=== PATIENT | male | born 1950 | race African-American/Black ===

== ENCOUNTER 2016-10-16 09:46 | Emergency (ER) | payer MEDICARE, OTHER ==
[~2016-10-16] VITALS: Ht 185.4 cm; Wt 104.5 kg
[~2016-10-16 09:46] MED LIST: ALLO300T2 PO; ATOR80TA PO; CETI10CA PO; FINA5TAB9 PO; FLUT9.9S NS; GABA600T2 PO; HYG25 PO; INSU100I SQ; INSU100I13 SUBQ; LOSA100T29 PO; NIFE90TA31 PO; OLAN5TAB PO; OLP.1OP5 AFFECT_EYE; ONDA8TAB7 PO; PANT40TA2 PO; SILD50TA PO; TOP100 PO; TRAM-14 PO
[2016-10-16 09:50] VITALS: BP 121/69; PULSE 82; RESP 18; O2SAT 97
--- NOTE | 2016-10-16 10:08 | ED.REPORT ---
HPI-Abd Pain M 40 and Over Date of Service Oct 16, 2016 ED Provider: Leandro Hartmann MD The patient is a 66 year old male with history of diabetes mellitus, diabetic gastroparesis, hypertension, and hyperlipidemia, who presents to the emergency department complaining of vomiting that began 2 days ago. He has also noticed "burning" in his chest, "acid" in his mouth, nausea. He has been unable to tolerate PO since onset. He normally takes Protonix. His symptoms are similar to previous episodes of gastroparesis. He denies abdominal pain, black/tarry stools, melena, hematochezia, dysuria, fever, chills, cough, shortness of breath , or chest pain. Nursing Notes Stated Complaint: VOMITING,DIABETIC Chief Complaint: Male Abdominal Pain Nursing Notes Reviewed: Yes Allergies: Coded Allergies: NSAIDS (Non-Steroidal Anti-Inflamma (Verified Allergy, Severe, HIVES, ) aspirin (Verified Allergy, Severe, ANAPHYLAXIS, 06/27/15) brompheniramine (Verified Allergy, Severe, ORAL CAVITY EDEMA, 06/27/15) egg (Verified Allergy, Severe, ANAPHYLAXIS (ALSO POULTRY), 06/27/15) hydrocodone (Verified Allergy, Severe, Anaphylaxis, 06/18/15) meperidine (Verified Allergy, Severe, Anaphylaxis, 06/18/15) promethazine (Verified Allergy, Severe, TREMULOUS, 06/25/15) sodium metabisulfite (Verified Allergy, Severe, 06/18/15) varicella-zoster immune globulin (h (Verified Allergy, Severe, 06/18/15) codeine (Verified Allergy, Unknown, UNKNOWN, 06/25/15) hydroxyzine HCl (Verified Allergy, Unknown, HIVES, 06/18/15) propoxyphene napsylate (Verified Allergy, Unknown, HIVES, 06/18/15) metformin (Verified Adverse Reaction, Severe, DIARRHEA, 06/25/15) metoclopramide (Verified Adverse Reaction, Unknown, Extrapyramidal Symptoms, 10/16/16) Uncoded Allergies: NAPSYLATE BROMPHENIRAMINE MALEATE (Allergy, Unknown, HIVES, 08/20/14) TUBERCULIN, PPD (Allergy, Unknown, UNKNOWN, 06/16/15) Scheduled Allopurinol (Allopurinol) 300 Mg Tablet 300 MG PO DAILY Atorvastatin (Lipitor) 80 Mg Tablet 80 MG PO DAILY Cetirizine HCl (Zyrtec) 10 Mg Capsule 10 MG PO HS Chlorthalidone (Chlorthalidone) 25 Mg Tablet 25 MG PO DAILY Finasteride (Finasteride) 5 Mg Tablet 5 MG PO DAILY Fluticasone Propionate (Flonase Allergy Relief) 50 Mcg/Actuation [place].susp 9.9 ML NS DAILY Gabapentin (Gabapentin) 600 Mg Tablet 600 MG PO TID Insulin Aspart (NovoLOG U-100 Pen) 100 Unit/Ml Insuln.pen 20-30 UNITS SQ AC SLIDING SCALE Insulin Glargine (Lantus U100 Solostar Insulin Pen) 100 Unit/1 Ml Insuln.pen 75 UNIT SUBQ HS Losartan Potassium (Losartan Potassium) 100 Mg Tablet 100 MG PO DAILY Metoprolol Succinate ER (Toprol XL) 100 Mg Tablet 100 MG PO DAILY Nifedipine ER (Nifedipine ER) 90 Mg Tab.er.24 90 MG PO DAILY Olanzapine (Olanzapine) 5 Mg Tablet 5 MG PO DAILY Olopatadine (Patanol) 5 Ml Soln 5 ML AFFECT_EYE PRN Pantoprazole DR (Protonix) 40 Mg Tablet 40 MG PO DAILY Scheduled PRN Ondansetron ODT (Zofran ODT) 8 Mg Tablet 8 MG PO TID PRN PRN For Nausea Ondansetron ODT (Zofran ODT) 4 Mg Tablet 4 MG PO Q4H PRN PRN For Nausea Sildenafil Citrate (Viagra) 50 Mg Tablet 50 MG PO UD PRN PRN ED Tramadol (Ultram) 50 Mg Tablet 50 MG PO Q6H PRN PRN Pain General Time Seen by MD: 10:01 Chief Complaint Other (vomiting) Hx Obtained From: Patient Arrived By: Walk-in Sudden in Onset?: Yes Onset Occurred: Yesterday Symptom Duration: Intermittent Progression since Onset: Intermittent, Gradually worsening Location: : Diffuse Quality: Burning, Pleuritic Severity: Current: Moderate Severity: Maximum: Severe Recent Healthcare: No recent hospitalization Similar Sx Previous: Yes Past Medical History Patient History: Patient reports no known family medical history. Past Medical History PTSD Arthritis Diabetic gastroparesis Reports: Diabetes mellitus, Hyperlipidemia, Hypertension Past Surgical History Right shoulder surgery Family History Noncontributoru Smoking History Never Smoker Social History Alcohol Use: Denies alcohol use Drug Use: Denies drug use Other Social History: Good social support, , Local resident Ambulatory Status Independent Review of Systems Constitutional: Denies: Chills, Fever Respiratory: Denies: Non-productive cough, Shortness of breath Cardiovascular: Denies: Chest pain GI: Reports: Anorexia, Nausea, Vomiting, Denies: Abdominal pain, Bloody/tarry stool, Hematochezia, Melena Male: Denies Dysuria Complete sys rev & neg: except as marked. Physical Exam Initial Vital Signs Vital Signs (First) Date Time Temp Pulse Resp B/P Pulse Ox O2 Delivery O2 Flow Rate FiO2 10/16/16 09:50 36.2 82 18 121/69 97 10/16/16 11:56 Room Air Initial VS: Reviewed Head / Eyes: Atraumatic, Normocephalic, PERRL ENT: Mucous membranes moist, Conjunctiva normal, No scleral icterus Neck: Supple, Non-tender, Full range of motion Lymphatic: No lymphadenopathy Extremities: Vascular intact, Neuro intact, No swelling, No tenderness Skin: Warm, Dry, No cyanosis Neurologic: Alert, Oriented, Nonfocal Psychiatric: Mood/affect normal, Behavior normal, Normal thought content General/Constitutional: Awake, Alert Respiratory / Chest: Atraumatic, Breath sounds NL, Breath sounds = bilat, No respiratory distress, No rales, No rhonchi, No wheezing Cardiovascular: Heart rate NL, Regular rhythm, Heart sounds NL, No murmurs, No rubs, Peripheral circulation NL Abdomen: Atraumatic, Soft, Non-tender, McBurney's non-tender, No guarding, No rebound, BS normoactive, No distention, No hernia, No palpable mass, No pulsatile mass Back: Inspection NL, Full range of motion, Painless range of motion Interpretation & Diagnostics Lab Results Interpretation Result Diagram: 10/16/16 1030 10/16/16 1030 Test 10/16/16 10:30 White Blood Count 7.1th/mm3 (3.8-10.1) Red Blood Count 4.51mil/mm3 (4.40-5.80) Hemoglobin 14.2g/dL (13.8-17.2) Hematocrit 41.0% (41.0-50.0) Mean Corpuscular Volume 90.9fL (81-100) Mean Corpuscular Hemoglobin 31.5pg (27.0-35.0) Mean Corpuscular Hemoglobin Concent 34.6% (32.0-37.0) Red Cell Distribution Width 12.2% (12.3-15.4) Platelet Count 184bil/L (150-400) Neutrophils (%) (Auto) 74.9% (40-74) Lymphocytes (%) (Auto) 16.7% (14-46) Monocytes (%) (Auto) 8.0% (4-12) Eosinophils (%) (Auto) 0.3% (0-5) Basophils (%) (Auto) 0% (0-3) Sodium Level 138mEq/L (134-144) Potassium Level 4.2mEq/L (3.5-5.2) Chloride Level 100mEq/L (97-108) Carbon Dioxide Level 23mmol/L (18-29) Blood Urea Nitrogen 12mg/dL (8-27) Creatinine 1.13mg/dL (0.76-1.27) Estimat Glomerular Filtration Rate 69mL/min (>59) Glucose Level 99mg/dL (60-99) Calcium Level 9.6mg/dL (8.5-10.1) Magnesium Level 2.0mg/dL (1.6-2.6) Total Bilirubin 0.7mg/dL (0.0-1.2) Aspartate Amino Transf (AST/SGOT) 21U/L (0-50) Alanine Aminotransferase (ALT/SGPT) 16U/L (0-44) Alkaline Phosphatase 67U/L (25-160) Total Protein 7.3g/dL (6.4-8.4) Albumin 4.2g/dL (3.4-5.0) Lipase 21U/L (13-60) Hold Paez Top Tube Received (Received) Re-Eval/Medical Decision Med Decision/Clinical Course 66-year-old male history of diabetic gastroparesis presenting complaining of acid reflux and nausea. Denies any fevers or abdominal pain. Vital signs stable. Labs are stable. Patient was given Zofran with improvement in nausea. He was then given Reglan which made him feel very anxious. He was given a very small dose of Ativan which made him feel much better. He had no vomiting. He was given a GI cocktail and his heartburn resolved. His nausea resolved. Patient felt much better and requested to go home and discharged home with return precautions. Source of Hx: Old records Time of Eval: 10:00 Re-Evaluation/Progress Note: The patient is still complaining of pain and nausea. Time of Eval: 11:23 Re-Evaluation/Progress Note: The patient is feeling anxious and agitated after the Reglan. Time of Eval: 11:48 Re-Evaluation/Progress Note: The patient feels much better and would like to go home. Counseled Regarding: Diagnosis, Lab results, Need for follow-up, When/why to return to ED Discharge & Departure Primary Impression: Diabetic gastroparesis Additional Impression: Gastritis Gastritis type: unspecified gastritis Chronicity: unspecified Gastritis bleeding: without bleeding Qualified Code: K29.70 - Gastritis, unspecified, without bleeding Disposition: Home Vital Signs - All Vital Signs Date Time Temp Pulse Resp B/P Pulse Ox O2 Delivery O2 Flow Rate FiO2 10/16/16 12:09 36.4 70 16 117/61 98 Room Air 10/16/16 11:56 36.4 70 16 117/61 98 Room Air 10/16/16 09:50 36.2 82 18 121/69 97 )( All Prior VS Reviewed: Yes Condition: Stable Patient Instructions: Diabetic gastroparesis (DC) Additional Instructions: Thank you for entrusting us with your care today. Take the Protonic as previously prescribed and use the Zofran as needed for nausea and vomiting. Followup with your primary doctor and bar supervisor. Please return to the emergency department if you are unable to keep fluids down, or if you develop vomiting, fever, abdominal pain, or any other new or concerning symptoms. Referrals: ROE JAQUEZ (PCP) Candice Attestation Portions of this note were transcribed by Mary Salgado. I, Dr. Hartmann personally performed the history, physical exam and medical decision-making; I reviewed and confirmed the accuracy of the information in the transcribed note. Signed by: Candice Serrano, 10/16/2016 at 1200. copies to: ROE JAQUEZ Ben M MD Oct 16, 2016 10:08 Mary Salgado Oct 16, 2016 10:14
[2016-10-16] MEDS ORDERED: 0.9% Sodium Chloride 1,000 ML IV ONE (10:15)
[2016-10-16 10:38] LABS: BASOPHILS % (AUTO) 0 % (0-3); EOSINOPHILS % (AUTO) 0.3 % (0-5); Mean Corpuscular Hemoglobin 31.5 pg (27.0-35.0); Mean Corpuscular Volume 90.9 fL (81-100); NEUTROPHILS % (AUTO) 74.9 % (40-74); Platelet Count 184 bil/L (150-400)
[2016-10-16] MEDS ORDERED: MetoCLOpramide 5 mg/mL 2 mL Inj IVPUSH ONE (10:45)
[2016-10-16] MEDS ORDERED: LidocaineVisc 2%:Antacid 1:1 10 mL Syringe PO ONE (10:45)
[2016-10-16] MEDS ORDERED: ONDA4TAB9 PO (11:50)
[2016-10-16 11:56] VITALS: BP 117/61; PULSE 70; RESP 16; O2SAT 98
[2016-10-16 12:09] VITALS: BP 117/61; PULSE 70; RESP 16; O2SAT 98
== END 2016-10-16 12:10 | disposition home or self-care (01) ==
LOC: SED 10:09
DX: E11.43 Type 2 diabetes mellitus with diabetic autonomic (poly)neuropathy (principal); K31.84 Gastroparesis; K29.70 Gastritis, unspecified, without bleeding; I10 Essential (primary) hypertension; E78.5 Hyperlipidemia, unspecified; Z88.6 Allergy status to analgesic agent; Z88.5 Allergy status to narcotic agent; Z88.8 Allergy status to other drugs, medicaments and biological substances; Z79.4 Long term (current) use of insulin
CPT/HCPCS: 80053; 82948; 83690; 83735; 85025; 96361; 96374; 96375; 99284; J2060; J2765; J7030

== ENCOUNTER 2017-01-02 08:32 | Day surgery (SDC) | payer MEDICARE, OTHER ==
--- NOTE | 2017-01-01 12:52 | PCM.HPANE ---
Patient Data Surgeon Admitting Provider: Attending Provider:Tristan Gruber MD Primary Care Physician:Edis Crowder Other Provider:Darryl Cornelius Anesthesia Reason for Visit Adenomatous Polyp Of Colon, Gerd Ht/WT & BMI Body Mass Index Allergies Coded Allergies: NSAIDS (Non-Steroidal Anti-Inflamma (Verified Allergy, Severe, HIVES, ) aspirin (Verified Allergy, Severe, ANAPHYLAXIS, 06/27/15) brompheniramine (Verified Allergy, Severe, ORAL CAVITY EDEMA, 06/27/15) diphenhydramine (Verified Allergy, Severe, Nausea,Vomiting, 01/02/17) egg (Verified Allergy, Severe, ANAPHYLAXIS (ALSO POULTRY), 06/27/15) hydrocodone (Verified Allergy, Severe, Anaphylaxis, 06/18/15) meperidine (Verified Allergy, Severe, Anaphylaxis, 06/18/15) promethazine (Verified Allergy, Severe, TREMULOUS, 06/25/15) sodium metabisulfite (Verified Allergy, Severe, 06/18/15) varicella-zoster immune globulin (h (Verified Allergy, Severe, 06/18/15) codeine (Verified Allergy, Unknown, UNKNOWN, 06/25/15) hydroxyzine HCl (Verified Allergy, Unknown, HIVES, 06/18/15) propoxyphene napsylate (Verified Allergy, Unknown, HIVES, 06/18/15) metformin (Verified Adverse Reaction, Severe, DIARRHEA, 06/25/15) metoclopramide (Verified Adverse Reaction, Unknown, Extrapyramidal Symptoms, 10/16/16) Uncoded Allergies: NAPSYLATE BROMPHENIRAMINE MALEATE (Allergy, Unknown, HIVES, 08/20/14) TUBERCULIN, PPD (Allergy, Unknown, UNKNOWN, 06/16/15) Past Anesthesia History Anesthesia History: Positive for:: Abnormal Airway, Difficult Intubation, Denies:: Anesthesia Reactions, Fam Anesthesia Reaction, Fam Malignant Hypertherm, Malignant Hyperthermia Additional Information: Hx of diffucult intubation with a reported LONG epiglottis via Mac 4 DL. Reported to have a good view of Vocal Cords with Glidescope #4. This was for a shoulder surgery here at [facility]. Chart is in EMR. Diabetes History Hx Diabetes?: Yes Type of Diabetes: Type I Glycemic Control: Insulin Dependent MRSA MRSA: No Medications Reported Medications Alprazolam (Xanax)0.25 Mg Tablet0.25 Mg PO TID PRN For Anxiety Ref 0 01/01/17 Tramadol 50 Mg Obujdq03 Mg PO TID PRN For Pain Ref 0 01/01/17 Insulin Glargine,Hum.rec.anlog (Toujeo Solostar)300 Unit/Ml (1.5 Ml) Insuln.pen80 Unit SQ BID 01/01/17 Sucralfate 1 Gm Tablet1 Gm PO QID 30 Days Ref 0 01/01/17 Sildenafil Citrate (Sildenafil)20 Mg Wneuln26 Mg PO 01/01/[address] 40 Mg Tablet.dr40 Mg PO BID Ref 0 01/01/17 Insulin Aspart (NovoLOG U100 Insulin Vial)100 U/Ml U15 Unit SUBQ HS #1 VIAL Ref 0 01/01/17 Insulin Aspart (NovoLOG U100 Insulin Vial)100 U/Ml U10 Unit SUBQ BID #1 VIAL Ref 0 01/01/17 Metoprolol Tartrate 25 Mg Duefna47 Mg PO BID 30 Days Ref 0 01/01/17 Lisinopril 40 Mg Bncbzz44 Mg PO DAILY 30 Days Ref 0 01/01/17 Carboxymethylcellulose Sodium (Lubricant Eye Drops)15 Ml Drops15 Ml OCULAR 01/01/17 Gabapentin 300 Mg Swkgeby772 Mg PO DAILY Ref 0 01/01/17 Dexlansoprazole ER (Dexilant)60 Mg Bttpitg11 Mg PO DAILY 30 Days Ref 0 01/01/17 Ammonium Lactate 1 Ml Solution1 Ml MC 01/01/17 Atorvastatin (Lipitor)80 Mg Ikwrpd92 Mg PO DAILY Ref 0 06/16/15 Discontinued Reported Medications Sildenafil Citrate (Viagra)50 Mg Ghifoe76 Mg PO UD PRN ED Ref 0 06/16/15 Olopatadine (Patanol)5 Ml Soln5 Ml AFFECT_EYE PRN 06/16/15 Olanzapine 5 Mg Tablet5 Mg PO DAILY Ref 0 06/16/15 Finasteride 5 Mg Tablet5 Mg PO DAILY 30 Days Ref 0 06/16/15 Gabapentin 600 Mg Papvdl008 Mg PO TID Ref 0 06/16/15 Allopurinol 300 Mg Thegav436 Mg PO DAILY Ref 0 06/16/[address] (Protonix)40 Mg Nmvrbs20 Mg PO DAILY Ref 0 06/16/15 Fluticasone Propionate (Flonase Allergy Relief)50 Mcg/Actuation [place].susp9.9 Ml NS DAILY 06/16/15 Cetirizine HCl (Zyrtec)10 Mg Jrjowiw60 Mg PO HS #30 CAPSULE Ref 0 06/16/15 Insulin Glargine (Lantus U100 Solostar Insulin Pen)100 Unit/1 Ml Insuln.pen75 Unit SUBQ HS #1 PENINJ Ref 0 06/16/15 Insulin Aspart (NovoLOG U-100 Pen)100 Unit/Ml Insuln.tqz58-54 Units SQ AC SLIDING SCALE 06/16/15 Metoprolol Succinate ER (Toprol XL)100 Mg Mivzti143 Mg PO DAILY Ref 0 06/16/15 Nifedipine ER 90 Mg Tab.er.2490 Mg PO DAILY Ref 0 06/16/15 Chlorthalidone 25 Mg Lkemxr77 Mg PO DAILY #30 TABLET 06/16/15 Losartan Potassium 100 Mg Qtmnew356 Mg PO DAILY 06/16/15 Discontinued Scripts Ondansetron ODT (Zofran ODT)4 Mg Tablet4 Mg PO Q4H PRN For Nausea #10 TABLET Prov:Leandro Hartmann MD 10/16/16 Tramadol (Ultram)50 Mg Aiagtv81 Mg PO Q6H PRN Pain #20 TABLET Ref 0 Prov:Alea Pickering DO 06/27/15 Ondansetron ODT (Zofran ODT)8 Mg Tablet8 Mg PO TID PRN For Nausea #14 TABLET Prov:Freedom Singh MD 06/25/15 History History of ENT Problems?: Yes HEENT History: Positive for:: Cataracts (S/P EXTRACTION) Sinus Problem (ALLERGIC RHINITIS) Denies:: Abnormal Airway Difficult Intubation Dysphagia Hearing Problem Denture Type: None Teeth Condition: Within Normal Limits Hx of Heart Problems?: Yes Cardiovascular History: Positive for:: Cardiac Surgery (HEART CATH [facility]2011) Chest Pain Hypertension (HYPERLIPIDEMIA) Denies:: AICD Atrial Fibrillation Pacemaker Valvular Heart Disease Hx of Respiratory Problem?: Yes Respiratory History: Positive for:: Asthma Pneumonia Use of C-PAP Machine (AR+ NOT USING CPAP (TROUBLE W/ EQUIP-NEW MACHINE ORDERED)) Denies:: COPD Cough Hemoptysis Tuberculosis Hx Neurologic Problems?: Yes Neurological History: Positive for:: Headaches (CHRONIC) Denies:: CVA Dementia Hx of GI Problems?: Yes Hx of Problems?: Yes Genitourinary History: Positive for:: Kidney Stones (HX OF) Male Hx: Positive for:: Prostate Problems (??LUTS) Denies:: Scrotal Mass Testicular Surgery Skin History: Positive for:: History Skin Disorders? (DRY SKIN) Denies:: Pressure Ulcers Hx Musculoskeletal Problems?: Yes Musculoskeletal History: Positive for:: Musculoskeletal Trauma (RT SHOULDER SLAP TEAR=CURRENT PROBLEM) Denies:: Back Injury (C/OF SCIATICA) Degenerative Joint Fibromyalgia Joint Replacement Myasthenia Gravis Osteoarthritis Rheumatoid Arthritis Systemic Lupus Hx of Psycho/Social Problems?: Yes Psycho Social History: Positive for:: Hx Depression (PTSD/CLAUSTROPHOBIC) Denies:: Anxiety Bipolar Disorder Suicide Attempt Hx Surgeries?: Yes (CATARACTS, EXC SPINAL MASS,HEART CATH,GLAUCOMA CORRECTION, R shoulder, tabatha) Hx Any Other Health Problems?: Yes Other History: Positive for:: Hospitalization (CARDIAC) Denies:: Cancer Endocrine Disease Thyroid Disease History Blood Transfusions: Denies:: Blood Transfusions Hx Diabetes: Yes Hx Alcohol Use: NoHx Substance Use: No Smoking Status: Never Smoker Have You Smoked inLast 12 mo: No Stop/Bang Risk Assessment Category Category 1A: Patient has history of documented sleep apnea, and HAS NOT received any narcotic, sedative or anesthesia administration during this stay. Category 1B: Patient has history of documented sleep apnea, and HAS received any narcotic , sedative or anesthesia administration during this stay Category 2: Patient has SUSPECTED Obstructive Sleep Apnea, and HAS received any narcotic , sedative or anesthesia administration during this stay. Category 3: Patient has SUSPECTED Obstructive Sleep Apnea and HAS NOT received narcotic, sedative or anesthesia administration during this stay. Category 4: Outpatient in Procedural Areas with known sleep apnea or who screen positive for High Risk via the STOP/BANG questionnaire. Exam Exam General Appearance: Alert, Oriented X3, Cooperative HEENT/AIRWAY: MP 3, Neck Movement (thick, 40% expected RONM), Mouth Opening ( moderate) Lungs: Clear to Auscultation Heart: Exam Unremarkable Plan Impression Patient chart reviewed, patient interviewed and anesthestic plan with risks, benefits, and alternatives discussed, and informed consent obtained. ASA Physical Status: ASA3 Severe Disease Anesthetic Plan: GA Bene/Risks/Altern/Consents: Yes HP Complete Prior to Induction: Yes Srini Mcmanus MD Jan 01, 2017 12:52
[~2017-01-02] VITALS: Ht 185.4 cm; Wt 104.3 kg
[~2017-01-02 08:32] MED LIST changes: -ALLO300T2 PO; +ALPR0.25 PO; +AMMO1SOL2 MC; +CARB15DR78 OCULAR; -CETI10CA PO; +DEXL60CA5 PO; -FINA5TAB9 PO; -FLUT9.9S NS; +GABA-502 PO; -GABA600T2 PO; -HYG25 PO; +INSU100C8 SUBQ; -INSU100I SQ; -INSU100I13 SUBQ; +INSU300I SQ; +LISI40TA PO; -LOSA100T29 PO; +Lactated Ringer's 1,000 ML IV ONE; +METO25TA6 PO; -NIFE90TA31 PO; -OLAN5TAB PO; -OLP.1OP5 AFFECT_EYE; -ONDA8TAB7 PO; -PANT40TA2 PO; +PANT40TA3 PO; +SILD20TA14 PO; -SILD50TA PO; +SUCR1TAB PO; -TOP100 PO; -TRAM-14 PO; +TRAM50TA2 PO
[2017-01-02] MEDS ORDERED: fentaNYL-PF 50 mCg/mL 2 mL Inj ONE (08:33)
[2017-01-02] MEDS ORDERED: Propofol 10,000 mCg/mL 20 mL Inj ONE (08:33)
[2017-01-02 09:03] VITALS: BP 157/81; PULSE 77; O2SAT 100
[2017-01-02] MEDS ORDERED: Ondansetron 2 mg/mL 2 mL Inj IVPUSH PRN (09:35)
[2017-01-02] MEDS ORDERED: Lactated Ringer's 1,000 ML IV SCH (09:35)
[2017-01-02 09:45] VITALS: BP 126/79; PULSE 69; RESP 16; O2SAT 95
[2017-01-02 09:55] VITALS: BP 126/81; PULSE 68; RESP 16; O2SAT 98
[2017-01-02 10:04] VITALS: BP 139/69; PULSE 67; RESP 16; O2SAT 99
--- NOTE | 2017-01-02 10:07 | ENDO ---
[address] [address] ENDOSCOPY PROCEDURE PATIENT: GABRIELLA AVALOS : 1950 MR#: [id number] ADMIT: 01/02/2017 JOB ID: [id number] DATE: 01/02/2017 TYPE OF OPERATION: Colonoscopy with biopsy and EGD with biopsy. PREOPERATIVE DIAGNOSIS(ES): Nausea and history of adenoma polyps. POSTOPERATIVE DIAGNOSIS(ES): 1. Multiple gastric polyps, benign, though seen in the body. 2. Three polyps seen in the colonoscopy, one in the cecum, one descending and one in the rectum measuring 2 mm in size, were removed by cold biopsy forceps. ANESTHESIA: Monitored anesthesia care. COMPLICATIONS: None. BLOOD LOSS: Minimal. DESCRIPTION OF PROCEDURE: After risks and benefits were explained to the patient, informed consent was obtained. After anesthesia administered, upper endoscope was then inserted into the mouth and intubated through esophagus, stomach, second portion of duodenum. Mucosa carefully examined. After the procedure was done, scope withdrawn and procedure terminated. Colonoscope was then inserted from the rectum to the cecum. Mucosa carefully examined. The prep of the patient was suboptimal. After procedure was done, the scope withdrawn and procedure terminated. FINDINGS: Upon inspection of the esophagus, the esophagus was normal without masses, ulcers or lesions. Z-line located 40 cm from incisors. Upon entering stomach, the stomach also normal except there were multiple gastric polyps seen in the body of the stomach which appeared benign. Retroflexion was normal. Duodenal bulb, first and second portion normal. Biopsy taken of the duodenum, antrum, body and distal esophagus. Upon inspection of the anus, no masses, hemorrhoids, ulcers, fissures that were seen. Throughout the entire examination, there were three polyps that were seen, one in the cecum, one in descending and one in the rectum measuring 2 mm in size, removed by cold biopsy forceps. Retroflexion was normal. IMPRESSIONS: 1. Multiple polyps in the body which appear benign status post biopsy. 2. Three polyps seen the colon measuring 2 mm in size, and one in cecum, one in the descending and one in the rectum status post biopsy. RECOMMENDATIONS: Await pathology results. If three or more tubular adenoma polyps, the next colonoscopy in three years. If less than three adenomatous polyps, next colonoscopy in five years. Followup in GI clinic as needed.
--- NOTE | 2017-01-02 11:39 | PCM.ANEP1 ---
Post Anesthesia PACU Phase 1 Assessment Vital Signs Vital Signs Date Time Temp Pulse Resp B/P Pulse Ox O2 Delivery O2 Flow Rate FiO2 01/02/17 10:04 67 16 139/69 99 Room Air 01/02/17 09:55 68 16 126/81 98 Room Air 01/02/17 09:45 69 16 126/79 95 Room Air 01/02/17 09:03 36.4 77 157/81 100 Room Air Anesthetic Administered: GA Level of Alertness: Awake, talking GAMBLE's with Equal Strength: Yes Pain: No Nausea or Vomiting: No CV Function & Hydration Stable: Yes Airway Device: Oxygen Delivery: Room Air Lungs: Normal Air Movement PACU Phase 2 Assessment Complications: No Follow up Care: No Patient Instructions Provided: N/A Srini Mcmanus MD Jan 02, 2017 11:39
--- NOTE | 2017-01-03 17:51 | PATH ---
SURGICAL PATHOLOGY Attending Physician:Tristan Gruber MD CASE STATUS: Signed Out PATIENT NAME: GABRIELLA AVALOS PID: [id number] : 1950 DATE COLLECTED:01/02/2017 15:37 SPECIMEN: 1: Duodenum, Biopsy 2: Stomach, Antrum, Biopsy 3: Gastric, Biopsy 4: Esophagus, Biopsy 5: Gastric, Biopsy 6: Colon, Polyp 7: Colon, Polyp 8: Rectum, Biopsy CLINICAL HISTORY: 1. DUODENAL BX 2. ANTRUM BX 3. GASTRIC BX 4. DISTAL ESOPHAGUS BX 5. GASTRIC POLYP 6. CECAL POLYP 7. DESCENDING POLYP 8. RECTAL POLYP FINAL DIAGNOSIS: 1.DUODENAL BIOPSY: DUODENAL MUCOSA WITH NO DIAGNOSTIC ABNORMALITY. Negative for active inflammation, features of sprue, dysplasia, and malignancy. 2.ANTRUM, BIOPSY: PORTIONS OF GASTRIC ANTRAL-TYPE MUCOSA WITH MILD CHRONIC ACTIVE GASTRITIS. No definite H. pylori organisms identified by H&E stain. Immunohistochemistry studies pending; results will be reported as an addendum. Negative for intestinal metaplasia, dysplasia, and malignancy. 3.GASTRIC BODY, BIOPSY: GASTRIC BODY-TYPE MUCOSA WITH NO DIAGNOSTIC ABNORMALITY. Negative for Helicobacter pylori organisms by H&E stain. Negative for intestinal metaplasia. Negative for dysplasia and malignancy. 4.DISTAL ESOPHAGUS, BIOPSY: SQUAMOCOLUMNAR JUNCTIONAL MUCOSA WITH NO DIAGNOSTIC ABNORMALITY. Negative for intestinal metaplasia. Negative for dysplasia and malignancy. 5.GASTRIC POLYP, BIOPSY: HISTOLOGIC FEATURES OF FUNDIC GLAND POLYP. No H. pylori organisms are identified by H&E stain. Negative for dysplasia and malignancy. 6.CECUM, POLYP, BIOPSY: PORTION OF TUBULAR ADENOMA X1; NEGATIVE FOR HIGH-GRADE DYSPLASIA. SUPERFICIAL PORTION OF COLORECTAL MUCOSA X1 WITH MILD HYPERPLASTIC MUCOSAL CHANGE AND OTHERWISE NO SIGNIFICANT HISTOMORPHOLOGIC ABNORMALITY. 7.DESCENDING COLON, POLYP, BIOPSY: TUBULAR ADENOMA; NEGATIVE FOR HIGH-GRADE DYSPLASIA. 8.RECTUM, POLYP, BIOPSY: HYPERPLASTIC POLYP. ICD10 K63.5 GROSS DESCRIPTION: The specimen is received in eight formalin filled containers labeled with the patient's name. 1). The specimen is sublabeled "duodenal" and consists of 2 portions of tissue which aggregate to 0.3 x 0.3 x 0.2 CM. The specimen is entirely submitted in cassette 1A. 2). The specimen is sublabeled "antrum" and consists of 2 portions of tissue which aggregate to 0.4 x 0.3 x 0.2 seen. The specimen is entirely submitted in cassette 2A. 3). The specimen is sublabeled "gastric body" and consists of a 0.3 x 0.3 x 0.3 CM portion of tissue which is entirely submitted in cassette 3A. 4). The specimen is sublabeled "distal esophagus" and consists of 2 extremely tiny portions of tissue which aggregate to 0.2 x 0.2 x 0.2 CM. The specimen is entirely submitted in cassette 4A. 5). The specimen is sublabeled "gastric polyps" and consists of a 0.3 x 0.3 x 0.2 CM portion of tissue which is entirely submitted in cassette 5A. 6). The specimen is sublabeled "cecal polyp" consists of 2 portions of tissue and or debris which aggregate to 0.4 x 0.3 x 0.2 CM. The specimen is entirely submitted in cassette 6A. 7). The specimen is sublabeled "descending polyp" and consists of a 0.3 x 0.3 x 0.2 CM portion of tissue which is entirely submitted in cassette 7A. 8). The specimen is sublabeled "rectal polyp" and consists of a 0.3 x 0.2 x 0.2 CM portion of tissue. The specimen is entirely submitted in cassette 8A. 01/02/2017 DAC MICRO DESCRIPTION: See diagnosis. ICD-9 CODES: CPT CODES: 1: 62588 2: 12852, 85920 3: 52966 4: 48590 5: 81750 6: 70554 7: 05392 8: 81226 PROCEDURE/ADDENDA: Addendum SPI Addendum Diagnosis 2. Antrum, Biopsy: Immunohistochemistry negative for Helicobacter organisms. Addendum Comment Part 2: Immunohistochemistry is performed to evaluate for the presence of Helicobacter organisms and is negative. The positive control reacted appropriately. Electronically Signed Out Jai Villanueva MD, PhD Electronically Signed Out Estrella Silvestre MD [facility] [address], [place] [address] Technical component performed at [facility], [address], [place], [address]
== END 2017-01-02 23:59 | disposition home or self-care (01) ==
LOC: END 08:32
PROVIDERS: ATTEND Internal Medicine Gastroenterology
DX: Z12.11 Encounter for screening for malignant neoplasm of colon (principal); D12.0 Benign neoplasm of cecum; D12.4 Benign neoplasm of descending colon; K62.1 Rectal polyp; Z86.010 Personal history of colon polyps; K31.7 Polyp of stomach and duodenum; K21.9 Gastro-esophageal reflux disease without esophagitis; J45.909 Unspecified asthma, uncomplicated; G47.33 Obstructive sleep apnea (adult) (pediatric); F40.240 Claustrophobia; E10.9 Type 1 diabetes mellitus without complications; F43.10 Post-traumatic stress disorder, unspecified; Z79.4 Long term (current) use of insulin
CPT/HCPCS: 43239; 45380; 88305; 88342; J2250; J3010; J7120